=== PATIENT | female | born 1985 | race Caucasian/White ===

== ENCOUNTER → 2024-01-12 15:14 | Outpatient (REF) | payer BC, SELFPAY ==
[2024-01-24 12:10] LABS: HPV, High Risk Not Detected; HPV, High Risk Source Cervical
== END ==
LOC: CPAP 15:14
PROVIDERS: ATTENDING PHYSICIAN Obstetrics & Gynecology Gynecology
DX: Z01.419 Encounter for gynecological examination (general) (routine) without abnormal findings (principal)
CPT/HCPCS: 87624; G0123

== ENCOUNTER → 2024-02-18 19:02 | Outpatient (REF) | payer BC, SELFPAY | LOC: WDC 19:02 | PROVIDERS: ATTENDING PHYSICIAN Obstetrics & Gynecology Gynecology | DX: Z12.31 Encounter for screening mammogram for malignant neoplasm of breast (principal); Z80.3 Family history of malignant neoplasm of breast | CPT/HCPCS: 77063; 77067 ==

== ENCOUNTER 2024-04-15 11:44 | Emergency (ER) | payer BC, SELFPAY ==
[2024-04-15 11:45] VITALS: BP 115/70
--- NOTE | 2024-04-15 12:48 | ED.GENMED ---
History of Present Illness
General
Chief Complaint: Back Pain
Time Seen by Provider: 04/15/24 12:45
Travel History
Have you had any contact with someone who has COVID-19?: No
Do you have any symptoms of coronavirus? Fever > 100 degrees, chills, cough, shortness of breath, sore throat, loss of taste or smell, muscle aches, or headache?: No
History of Present Illness
History of Present Illness:
38-year-old female presents to the emergency department for evaluation of severe right lower back pain radiating to the right leg associated with paresthesias. Has significant pain when walking. Denies any urine retention or saddle anesthesias.
Denies any acute trauma but does note that she went to her chiropractor today and was advised to come to the ER due to significant degree of pain. Has known history of L4-5 disc herniation on MRI from 2020.
Past History
Past History
ED Past Medical History: None
ED Past Surgical History: None
Social History
Tobacco: Non-smoker
Personal: Single
Living: with family
Employment: Employed ( ICU nurse)
Family History
Family History: Negative Diabetes, Hypertension or CAD
Review of Systems
Review of Systems
Allergies reviewed?: Yes
All Other Systems: ROS reviewed and negative except as documented in HPI and ROS
Phy Exam
Physical Exam
Physical Exam:
GEN: Well appearing, NAD, WDWN
HEENT: Oral mucosa moist, no scleral icterus
Cardiac: Regular rate
Lung: No respiratory distress, no tachypnea
MSK: No gross deformity or injuries. Bilateral lower extremity strength is 5 out of 5 in all estrada and symmetric, patellar reflexes 2+ bilaterally
Skin: Good color, no pallor or jaundice, no rashes
Neuro: AO x3, moves all extremities freely
Psych: Calm, cooperative
Course
Orders/Labs/Results
Orders:
Orders
04/15/24 13:18
Diazepam [Valium] 5 mg PO NOW STA
Ketorolac [Toradol] 30 mg IM NOW STA
Lidocaine [Lidocaine 4% Patch] 1 patch TOPICAL NOW STA
Vital Signs
Initial and Last Documented VS:
Initial Vital Signs
Temp Pulse Resp BP Pulse Ox
98.0 F 76 20 115/70 100
04/15/24 11:45 04/15/24 11:45 04/15/24 11:45 04/15/24 11:45 04/15/24 11:45
Last Documented Vital Signs
Temp Pulse Resp BP Pulse Ox
98.0 F 76 20 115/70 100
04/15/24 11:45 04/15/24 11:45 04/15/24 11:45 04/15/24 11:45 04/15/24 11:45
MDM/Problems Addressed
MDM/Problems Addressed:
Findings consistent with acute lumbar radiculopathy likely from known L4-5 disc herniation. Improved with supportive treatment in the emergency department, recommend outpatient spine/orthopedic follow-up and course of corticosteroids
*Critical Care Note
Total Time (30-74mins, 75-104mins- exclusive of procedures): Not Applicable
ED Attending Note
-
Portions of this chart may have been created with voice recognition software.� Occasional wrong word or��sound alike� substitutions may have occurred due to the inherent limitations of voice recognition software.
Discharge Plan
Departure
Patient Disposition: Home (Routine Discharge)
Date of Disposition: 04/15/24
Time of Disposition: 14:32
Patient with high blood pressure during this ER visit?: No
Discharge Problem:
Lumbar disc herniation with radiculopathy
Instructions: Radiculopathy (DC)
Prescriptions:
New
diazepam 5 mg tablet
5 mg PO TID PRN (Reason: muscle spasm) Qty: 15 0RF
prednisone 10 mg tablet
10 mg PO DIRECTED Qty: 43 0RF
Rx Instructions:
Once daily as follows: 60, 60, 50, 50, 40, 40, 30, 30, 20, 20, 10, 10, 5, 5
No Action
PNV cmb#95-ferrous fumarate-FA [] 1 EACH tablet
1 ea PO DAILY
ranitidine HCl [Zantac Maximum Strength] 150 MG tablet
150 mg PO DAILYPRN PRN (Reason: acid reflux)
ibuprofen 600 MG tablet
600 mg PO Q4HPRN PRN (Reason: moderate pain/cramps) 0RF
Referrals:
Wilfredo Foreman MD [Family Provider] -
Interventions
Interventions:
*Risk Screen - Suicide Last Done: 04/15/24 11:45
*General Assessment Last Done: 04/15/24 11:45
*Neglect/Abuse Screening Last Done: 04/15/24 11:45
ED- Fall Risk Assessment Last Done: 04/15/24 13:37
*ED COVID-19 Vaccine History Last Done: 04/15/24 13:37
*Nursing Disposition Last Done: 04/15/24 14:47
ED-Musculoskeletal Assessment Last Done: 04/15/24 14:00
Discharge Date and Time
Discharge Date/Time: 04/15/24 14:47
Print Language: DANISH
[2024-04-15] MEDS: VALIUM 5 MG PO (13:30)
[2024-04-15] MEDS: LIDOCAINE 4% PATCH 1 PATCH TOPICAL (13:30)
[2024-04-15] MEDS: TORADOL 30 MG IM (13:32)
== END 2024-04-15 14:47 | disposition home or self-care (01) ==
LOC: EMR 11:44
PROVIDERS: EMERGENCY PHYSICIAN Emergency Medicine; FAMILY PHYSICIAN Family Medicine
DX: M51.16 Intervertebral disc disorders with radiculopathy, lumbar region (principal)
CPT/HCPCS: 99283

== ENCOUNTER → 2025-10-18 09:45 | Outpatient (REF) | payer BC, SELFPAY ==
[2025-10-18 11:52] LABS: Hepatitis B Surface Antigen Negative (Negative)
[2025-10-18 12:10] LABS: Hepatitis C Antibody Negative (Negative)
== END ==
LOC: REG 09:45
PROVIDERS: ATTENDING PHYSICIAN Nurse Practitioner Adult Health; FAMILY PHYSICIAN Family Medicine
DX: Z20.2 Contact with and (suspected) exposure to infections with a predominantly sexual mode of transmission (principal)
CPT/HCPCS: 36415; 86780; 86803; 87340; 87389

== ENCOUNTER → 2025-10-24 15:21 | Outpatient (REF) | payer BC, SELFPAY | LOC: RAD 15:21 | PROVIDERS: ATTENDING PHYSICIAN Clinical Nurse Specialist Acute Care; FAMILY PHYSICIAN Family Medicine | DX: S62.91XA Unspecified fracture of right hand, initial encounter for closed fracture (principal) | CPT/HCPCS: 73130 ==